=== PATIENT | female | born 1975 | race Caucasian/White ===

== ENCOUNTER 2022-01-15 09:24 | Day surgery (SDC) | payer OTHER, SELFPAY ==
[~2022-01-15] VITALS: Ht 154.9 cm; Wt 89.4 kg
[2022-01-15] MEDS ORDERED: fentaNYL citrate 0.05 MG/ML VIAL ONE (13:03)
[2022-01-15] MEDS ORDERED: LIDOCAINE 2% 100 MG/5 ML UJET TP ONE (13:03)
[2022-01-15] MEDS ORDERED: MIDAZOLAM 5 MG/5 ML VIAL ONE (13:03)
[2022-01-15] MEDS ORDERED: MIDAZOLAM 2 MG/2 ML VIAL IVP ONE (13:50)
[2022-01-15] MEDS ORDERED: fentaNYL citrate 0.05 MG/ML VIAL IVP ONE (13:50)
== END 2022-01-15 14:15 | disposition home or self-care (01) ==
LOC: MDS 09:24 → MMU 10:06 → MDS 14:15
PROVIDERS: ATTEND Internal Medicine Gastroenterology
DX: Z12.11 Encounter for screening for malignant neoplasm of colon (principal); K44.9 Diaphragmatic hernia without obstruction or gangrene; Z98.84 Bariatric surgery status; J45.909 Unspecified asthma, uncomplicated; Z90.710 Acquired absence of both cervix and uterus; Z20.822 Contact with and (suspected) exposure to COVID-19; Z91.040 Latex allergy status; Z80.0 Family history of malignant neoplasm of digestive organs
CPT/HCPCS: 36415; 43239; 45378; 86677; 87426; J2250; J3010

== ENCOUNTER 2022-11-19 06:58 | Day surgery (SDC) | payer OTHER ==
[~2022-11-19] VITALS: Ht 154.9 cm; Wt 73.5 kg
[2022-11-19] MEDS ORDERED: LIDOCAINE 2% 100 MG/5 ML UJET TP ONE (07:46)
[2022-11-19] MEDS ORDERED: fentaNYL citrate 0.05 MG/ML VIAL ONE (07:46)
[2022-11-19] MEDS ORDERED: MIDAZOLAM 2 MG/2 ML VIAL ONE (07:46)
[2022-11-19] MEDS ORDERED: fentaNYL citrate 0.05 MG/ML VIAL IVP ONE (09:45)
[2022-11-19] MEDS ORDERED: MIDAZOLAM 2 MG/2 ML VIAL IVP ONE (09:45)
== END 2022-11-19 09:55 | disposition home or self-care (01) ==
LOC: MMU 06:58 → MOR 06:58
PROVIDERS: ATTEND Internal Medicine Gastroenterology
DX: Z12.11 Encounter for screening for malignant neoplasm of colon (principal); K63.5 Polyp of colon; K21.00 Gastro-esophageal reflux disease with esophagitis, without bleeding; K44.9 Diaphragmatic hernia without obstruction or gangrene; J45.909 Unspecified asthma, uncomplicated; G43.909 Migraine, unspecified, not intractable, without status migrainosus; Z20.822 Contact with and (suspected) exposure to COVID-19; Z91.040 Latex allergy status; Z98.84 Bariatric surgery status; Z79.899 Other long term (current) drug therapy
CPT/HCPCS: 43235; 45385; 87426; J2250; J3010